=== PATIENT | female | born 1990 | race Caucasian/White ===

== ENCOUNTER 2017-11-29 03:39 | Inpatient (IN) | payer OTHER ==
[~2017-11-29] VITALS: Ht 154.9 cm; Wt 52.6 kg
[2017-11-30] MEDS ORDERED: PRENATAL TABLE1 EAC1 PO (10:35)
== END 2017-12-09 15:00 | DRG 781 ==
LOC: OBS/DEL 03:39 → LDR 11-30 10:03 → OB/GYN 11-30 10:03 → LDR 12-03 11:53 → OB/GYN 12-04 15:31
PROVIDERS: Surgery
PROC: BY4CZZZ Ultrasonography of Second Trimester, Single Fetus (ICD-10-PCS; 2017-11-29)
PROC: BW40ZZZ Ultrasonography of Abdomen (ICD-10-PCS; 2017-11-29)
PROC: BW30ZZZ Magnetic Resonance Imaging (MRI) of Abdomen (ICD-10-PCS; 2017-11-30)
PROC: BW3GZZZ Magnetic Resonance Imaging (MRI) of Pelvic Region (ICD-10-PCS; 2017-11-30)
PROC: 4A033R1 Measurement of Arterial Saturation, Peripheral, Percutaneous Approach (ICD-10-PCS; 2017-12-02)
PROC: 3E0F7GC Introduction of Other Therapeutic Substance into Respiratory Tract, Via Natural or Artificial Opening (ICD-10-PCS; 2017-12-02)
PROC: 0DJD4ZZ Inspection of Lower Intestinal Tract, Percutaneous Endoscopic Approach (ICD-10-PCS; 2017-12-03)
PROC: 0DTJ0ZZ Resection of Appendix, Open Approach (ICD-10-PCS; 2017-12-03)
PROC: 0DBU0ZZ Excision of Omentum, Open Approach (ICD-10-PCS; 2017-12-03)
PROC: 0DTJ0ZZ Resection of Appendix, Open Approach (ICD-10-PCS; principal; 2017-12-03 09:30)
PROC: 30233N1 Transfusion of Nonautologous Red Blood Cells into Peripheral Vein, Percutaneous Approach (ICD-10-PCS; 2017-12-05)
DX: O99.612 Diseases of the digestive system complicating pregnancy, second trimester (principal); J16.8 Pneumonia due to other specified infectious organisms; K55.041 Focal (segmental) acute infarction of large intestine; K35.3 Acute appendicitis with localized peritonitis; O99.012 Anemia complicating pregnancy, second trimester
CPT/HCPCS: 72197

== ENCOUNTER 2018-03-23 14:00 | Inpatient (IN) | payer OTHER ==
[~2018-03-23] VITALS: Ht 154.9 cm; Wt 60.8 kg
[~2018-03-23 14:00] MED LIST: PRENATAL TABLE1 EAC1 PO
[2018-04-07] MEDS ORDERED: ACETAMINOPHEN500 M1 PO (12:03)
[2018-04-07] MEDS ORDERED: DOCUSATE SODIU100 MG PO (12:03)
[2018-04-07] MEDS ORDERED: NABUMETONE750 MG PO (12:03)
== END 2018-04-07 13:59 | disposition home or self-care (01) | DRG 768 ==
LOC: LDR 04-04 14:00 → OB/GYN 04-06 00:08
PROC: 10E0XZZ Delivery of Products of Conception, External Approach (ICD-10-PCS; principal; 2018-04-05)
PROC: 0DQR0ZZ Repair Anal Sphincter, Open Approach (ICD-10-PCS; 2018-04-05)
PROC: 4A1HXCZ Monitoring of Products of Conception, Cardiac Rate, External Approach (ICD-10-PCS; 2018-04-05)
DX: O70.21 Third degree perineal laceration during delivery, IIIa (principal); Z37.0 Single live birth; Z3A.40 40 weeks gestation of pregnancy

== ENCOUNTER 2023-12-09 10:19 | Outpatient (CLI) | payer OTHER ==
[~2023-12-09 10:19] MED LIST changes: +ACETAMINOPHEN500 M1 PO; +DOCUSATE SODIU100 MG PO; +NABUMETONE750 MG PO
== END 2023-12-09 10:26 | disposition home or self-care (01) ==
LOC: RX STUDY 10:19
PROVIDERS: ATTEND Obstetrics & Gynecology
DX: N97.0 Female infertility associated with anovulation (principal)